=== PATIENT | male | born 1950 | race Caucasian/White ===

== ENCOUNTER → 2020-02-22 | Outpatient (CLI) | payer MEDICARE, OTHER ==
--- NOTE | 2020-02-22 18:56 | MR ---
EXAMINATION TYPE: MR lumbar spine wo/w con DATE OF EXAM: 02/22/2020 COMPARISON: NONE HISTORY: Low back pain, Rt leg/foot numbness, and urinary frequency all per order. Low back pain radi ating into right lower extremity with numbness been present for years increasing in severity over the last 1 month per patient. TECHNIQUE: Multiplanar, multisequence images of the lumbar spine is performed without and with IV contrast, util izing 7.5 mL intravenous Gadavist FINDINGS: Survey images shows dextro convex scoliosis centered at L2-L3 level. Sagittal images of the lumbar spine show vertebral body heights to appear satisfactory. Subtle grade 1 retrolisthesis L2 on L3. Multilevel disc desiccation. Moderate to advanced disc space narrowing and anterior spurring L2- L3 level. Mild to moderate disc space narrowing with vacuum disc phenomenon L3-L4 and L4-L5 levels. The conus medullaris is normal in position and signal ending mid L1 level. The bone marrow signal in tensity is within normal limits. No suspicious postcontrast enhancement is seen. Axial images at T12-L1 level shows mild broad-based disc bulge minimally effacing the anterior thecal sac with mild facet arthropathy bilaterally. Axial images at the L1-L2 level show mild/moderate facet degenerative changes and ligament flavum hyp ertrophy effacing right posterior lateral thecal sac and mild broad disc bulge. Bilateral neural fora marybeth are patent. Axial images at the L2-L3 level shows moderate posterior spur disc complex. There is mild/moderate fa cet degenerative change and ligament flavum hypertrophy. There is effacement of the anterior thecal s ac. Bilateral neural foramina are patent. Axial images at the L3-L4 level show mild/moderate facet degenerative changes and ligament flavum hyp ertrophy effacing bilateral posterior lateral thecal sac on axial image 12. There is moderate broad-b ased posterior disc protrusion effacing the anterior thecal sac. There is tfsbrrgq-eq-nzoeiu right an d nvsy-zv-jvhanbhr left-sided neural foraminal narrowing. Encroachment on exiting right L3 nerve felt present sagittal image 14 and axial image 12. Axial images at the L4-L5 level show qhcu-yt-xadqhusy broad disc bulge with broad-based right paracen tral/foraminal disc protrusion and additional right lateral disc protrusion. There is effacement of t he anterolateral thecal sac. There is moderate to severe facet degenerative change and ligament flavu m hypertrophy effacing posterior lateral thecal sac. There is iiwxzqod-tt-rzdqfz right-sided neural f oraminal narrowing encroaching on exiting right L4 nerve sagittal image 12 and axial image 6. Left-si ded neural foramen is patent. Axial images at the L5-S1 level show advanced facet degenerative changes bilaterally. Spinal canal pr eserved. Bilateral neural foramina are patent. Asymmetric mild to moderate atrophy of the right lateral paraspinal muscles noted seen best inferiorl y. IMPRESSION: Scoliotic curvature with multilevel degenerative changes as detailed above. Attention to L3-L4 and L4-L5 levels with encroachment on the exiting right L3 and L4 nerves felt present. Asymmetr ic lateral lower right paraspinal mild to moderate muscular atrophy is noted. Further details as disc ussed above.
== END | disposition home or self-care (01) ==
LOC: RADMRIMAIN 17:34
PROVIDERS: ATTEND Urology
DX: M48.061 Spinal stenosis, lumbar region without neurogenic claudication (principal); M99.73 Connective tissue and disc stenosis of intervertebral foramina of lumbar region; M51.26 Other intervertebral disc displacement, lumbar region; M51.25 Other intervertebral disc displacement, thoracolumbar region; M43.16 Spondylolisthesis, lumbar region; M47.815 Spondylosis without myelopathy or radiculopathy, thoracolumbar region; M47.816 Spondylosis without myelopathy or radiculopathy, lumbar region; M47.817 Spondylosis without myelopathy or radiculopathy, lumbosacral region; M41.86 Other forms of scoliosis, lumbar region; G12.9 Spinal muscular atrophy, unspecified; R35.0 Frequency of micturition
CPT/HCPCS: 72158; A9585

== ENCOUNTER → 2020-03-20 | Day surgery (SDC) | payer MEDICARE, OTHER ==
[2020-03-16 12:00] VITALS: BMI 29.8
[~2020-03-20] MED LIST: IOPAMIDOL M200 10 ML VIAL ONE; IV FLUID CONTINUATION 1,000 ML IV ONE; LACTATED RINGERS 1,000 ML IV SCH; MIDAZOLAM 2 MG/2 ML VIAL ONE; ROPIVACAINE 5MG/ML 20ML VIAL ONE; fentaNYL (PF) 50 MCG/ML 2 ML AMP ONE; methylPREDNISolone ACETATE 40 MG/ML 1 ML VIAL ONE
[2020-03-20 07:04] VITALS: RESP 16; TEMP 97.7
--- NOTE | 2020-03-20 08:09 | P.PCN ---
Date of Procedure: 03/20/20 Procedure(s) Performed: PREOPERATIVE DIAGNOSIS: 1- Lumbar Degenerative Disc Diseases 2-Lumbar spondylosis with Facet arthropathy without myelopathy. 3-left hip arthralgia. POSTOPERATIVE DIAGNOSIS: 1-Lumber Degenerative Disc Diseases 2-Lumbar spondylosis with Facet arthropathy without myelopathy. 3-left hip arthralgia. PROCEDURE 1. Lumbar epidural steroid injection under fluoroscopic guidance at the L5-S1 level. (Fluoroscopy imaging was available in radiology department) 2. Lumbar epidurogram. 3. Left hip joint intra-articular steroid injection . ANESTHESIA: Local with 1% lidocaine 3 ml and , moderate sedation with intravenous Versed 2 mg ,and fentanyle 50 Mcg EBL: Minimal PROCEDURE INDICATION: The patient with low back pain and radiculitis symptoms unresponsive to conservative treatment. Fluoroscopy was used to optimize visualization of the needle placement and to maximize safety. PROCEDURE DESCRIPTION / TECHNIQUE: The patient was seen and identified in the preoperative area. Risks, benefits, complications including but not limited to infections ,bleeding ,allergic reaction to the medications ,nerve damage and not complete pain releife , and alternatives were discussed with the patient. The patient agreed to proceed with the procedure and signed the consent. IV was started, and vital signs were stable. Patient was taken to the OR and time out was completed. The patient was placed in the prone position on procedure table and a pillow was placed under the abdomen to reduce lumbar lordosis. The lumbosacral area was prepped and draped in the usual sterile fashion.ere closely monitored during the procedure. Conscious sedation was used during the procedure to decrease patients anxiety. Vital signs was monitered during the entire procedure. Using anterior-posterior fluoroscopy, the L5-S1 interlaminar space was identified and the skin over this site was marked and then infiltrated with 1% lidocaine subcutaneously. Subsequently, a 20-gauge Tuohy epidural needle was inserted and advanced toward the epidural space using the ``Loss of resistance technique and guided by AP and lateral fluoroscopy. The correct needle position in the epidural space was verified with the injection of 2 mL of the water soluble contrast dye Isovue 200 contrast and observing an excellent epidurogram with the epidural spread of the dye, after negative aspiration for blood and CSF and in the absence of paresthesias. Again after negative aspiration, a 6 ml mixture containing 40 mg of Depo-medrol , and 2 ml of preservative free Normal Saline, and 2 ml of preservative free lidocaine 1% solution was injected and a washout of epidurogram was seen. Needle was withdrawn intact, skin was cleansed, and bandages were applied. Then patient turned and he was placed on supine position, the left hip area prepped with Betadine 3, then under sterile technique local infiltration of the skin and subcutaneous tissue lidocaine 1% 3 mL then 22-gauge Quincke-type spinal needle advanced slowly under fluoroscopy and placed in the left hip joint, needle placement confirmed with injection of Isovue 200 , 3 mL injected showed positive spread in the intra-articular of the left hip, then after negative aspiration, bupivacaine 0.5% 5 ML and 40 mg of Depo-Medrol mixed together and injected after negative aspiration, patient tolerated the procedure well without any complication COMPLICATIONS: None DISPOSITION / PLANS: The patient was placed in a supine position and transferred to the recovery area in a stable condition for observation. There was no evidence of lower extremity motor or sensory deficit after the procedure. Patient was discharged from the recovery room after meeting discharge criteria. Home discharge instructions were given to the patient by the staff. The patient was reexamined prior to discharge. The patient will schedule a follow up in the clinic in 2-4 weeks.
[2020-03-20 08:22] VITALS: BP 130/80; PULSE 72
--- NOTE | 2020-03-20 08:24 | FL ---
Fluoroscopy INDICATION: Pain FINDINGS: Fluoroscopy time: 0.1 minutes Images obtained: 2. IMPRESSIONS: 1. Documentation of fluoroscopy.
== END ==
LOC: ORPAIN 06:42
PROVIDERS: ATTEND Specialist
DX: M47.26 Other spondylosis with radiculopathy, lumbar region (principal); M25.552 Pain in left hip; M51.16 Intervertebral disc disorders with radiculopathy, lumbar region
CPT/HCPCS: 62323; 20610; J2250; J1030; J3010; Q9966; J2795; 99152

== ENCOUNTER 2020-05-08 13:39 | Day surgery (SDC) | payer MEDICARE, OTHER ==
[2020-05-04 11:06] VITALS: BMI 29.8
[~2020-05-08 13:39] MED LIST changes: -IOPAMIDOL M200 10 ML VIAL ONE; -IV FLUID CONTINUATION 1,000 ML IV ONE; -MIDAZOLAM 2 MG/2 ML VIAL ONE; -ROPIVACAINE 5MG/ML 20ML VIAL ONE; -fentaNYL (PF) 50 MCG/ML 2 ML AMP ONE; -methylPREDNISolone ACETATE 40 MG/ML 1 ML VIAL ONE
[2020-05-08 13:58] VITALS: RESP 16; TEMP 97.5
[2020-05-08] MEDS ORDERED: IOPAMIDOL M200 10 ML VIAL ONE (14:02)
[2020-05-08] MEDS ORDERED: methylPREDNISolone ACETATE 40 MG/ML 1 ML VIAL ONE (14:02)
--- NOTE | 2020-05-08 14:20 | P.PCN ---
Date of Procedure: 05/08/20 Procedure(s) Performed: PREOPERATIVE DIAGNOSIS:1- Lumbar radiculopathy . 2-lumbar degenerative disc disease. 3-lumbar spondylosis with lumbar facet arthropathy without myelopathy POSTOPERATIVE DIAGNOSIS: Same as preoperative diagnoses. PROCEDURE 1. Transforaminal epidural steroid injection under fluoroscopic guidance at left L3-4 ,and L4-5 level. (Fluoroscopy images stored on file in the radiology Department ) 2. Lumbar epidurogram . ANESTHESIA: Local with 1% lidocaine 4 ml only ( NO IV SEDATIONS ) EBL: Minimal PROCEDURE INDICATION: The patient with low back pain and radiculopathy symptoms unresponsive to conservative treatment. PROCEDURE DESCRIPTION / TECHNIQUE: The patient was seen and identified in the preoperative area. Risks, benefits, complications, and alternatives were discussed with the patient. The patient agreed to proceed with the procedure and signed the consent. IV was started, and vital signs were stable. Patient was taken to the OR and time out was completed. The patient was placed in the prone position on procedure table and a pillow was placed under the abdomen to reduce lumbar lordosis. The lumbosacral area was prepped and draped in the usual sterile fashion. Critical pause was taken. Vital signs were closely monitored during the procedure. Conscious sedation was used during the procedure to decrease patient s anxiety. Using oblique fluoroscopy, the chin of the ``Miky dog at left L4-5 level was identified, and the skin and deeper tissues just below was localized with 1% lidocaine. Subsequently, a 22-gauge 3.5-inch spinal needle was advanced under a tunneled view fluoroscopic guidance just underneath the chin of the `Laureny dog at the left L4-5 Under lateral fluoroscopy, the needle was then advanced to the posterior border of the interforaminal space. After negative aspiration of CSF and blood and with no paresthesias, 1 mL Isovue 200 contrast dye was injected excellent epidurogram and outlining of the nerve root Subsequently, 3 mL of block solution containing 30 mg Depo-Medrol and 2 mL of 0.9% normal saline PF was injected. Needle was removed and the same procedure was repeated at the left L3-4 level . At the end of the procedure, skin was cleansed, and bandages were applied. COMPLICATIONS:none DISPOSITION / PLANS: The patient was placed in a supine position and transferred to the recovery area in a stable condition for observation. There was no evidence of lower extremity motor or sensory deficit after the procedure. Patient was discharged from the recovery room after meeting discharge criteria. Home discharge instructions were given to the patient by the staff. The patient was reexamined prior to discharge.
[2020-05-08 14:35] VITALS: BP 160/90; PULSE 57
--- NOTE | 2020-05-08 14:46 | FL ---
Fluoroscopy History: Left Transforaminal Inj 5sec fluoro time, 2 images scanned
== END 2020-05-08 14:41 | disposition home or self-care (01) ==
LOC: ORPAIN 13:39
PROVIDERS: ATTEND Specialist
DX: M47.26 Other spondylosis with radiculopathy, lumbar region (principal); M51.16 Intervertebral disc disorders with radiculopathy, lumbar region
CPT/HCPCS: 64483; 64484; J1030; Q9966

== ENCOUNTER → 2020-06-20 | Outpatient (CLI) | payer MEDICARE, OTHER ==
[2020-06-20 11:18] LABS: Basophils % (A) 1 %; Eosinophils # (A) 0.2 k/uL (0-0.7); Eosinophils % (A) 5 %; HCT 42.5 % (39.0-53.0); HGB 13.5 gm/dL (13.0-17.5); Lymphocytes # (A) 0.9 k/uL (1.0-4.8); Lymphocytes % (A) 19 %; MCH 30.1 pg (25.0-35.0); MCHC 31.9 g/dL (31.0-37.0); MCV 94.5 fL (80.0-100.0); Mean Platelet Volume 7.2; Monocytes # (A) 0.4 k/uL (0-1.0); Monocytes % (A) 9 %; Neutrophils # (A) 3.3 k/uL (1.3-7.7); Neutrophils % (A) 65 %; Platelet Count 221 k/uL (150-450); RDW 13.5 % (11.5-15.5)
[2020-06-20 11:26] LABS: African American GFR (CKD) >90 (>60 ml/min/1.73 sqM); Anion Gap 4 mmol/L; Blood Urea Nitrogen 19 mg/dL (9-20); Calcium 9.4 mg/dL (8.4-10.2); Carbon Dioxide 28 mmol/L (22-30); Chloride 108 mmol/L (98-107); Glucose 118 mg/dL (74-99); Non-African American GFR(CKD) >90 (>60 ml/min/1.73 sqM); Potassium 4.7 mmol/L (3.5-5.1); Sodium 140 mmol/L (137-145)
== END | disposition home or self-care (01) ==
LOC: LABWHC1 10:14
PROVIDERS: ATTEND Urology
DX: Z01.818 Encounter for other preprocedural examination (principal); C61 Malignant neoplasm of prostate; R53.83 Other fatigue
CPT/HCPCS: 36415; 80048; 85025; 86850; 86900; 86901; 93005

== ENCOUNTER 2020-06-27 10:36 | Day surgery (SDC) | payer MEDICARE, OTHER ==
[2020-06-21 09:12] VITALS: BMI 29.8
--- NOTE | 2020-06-25 06:28 | P.GSHP ---
History of Present Illness H&P Date: 06/25/20 Chief Complaint: Prostate cancer The patient is a 69-year-old white male with a history of mild lower urinary tract symptoms. His PSA level was 4.69 in January 2018. He has no family history of prostate cancer. He was recently found to have a right-sided prostate nodule. Prostate ultrasound revealed a prostate volume of 21 mL. 7 of 12 biopsies revealed Jamia 7 (3+4) adenocarcinoma. The Prolaris score was 3.3. Alternative treatment options were reviewed, and he has elected to undergo a robotic-assisted laparoscopic prostatectomy with bilateral pelvic lymphadenectomy. - Cardiovascular Cardiovascular: Reports high blood pressure - Genitourinary (Male) Genitourinary: Reports nocturia Past Medical History Past Medical History: Cancer, Hypertension Additional Past Medical History / Comment(s): Subdural hematoma 2001 History of Any Multi-Drug Resistant Organisms: MRSA Date of last positivie culture/infection: 2009 MDRO Source:: buttocks Past Surgical History: Orthopedic Surgery, Tonsillectomy Additional Past Surgical History / Comment(s): brain surgery, ganglion cyst removed from knee Past Anesthesia/Blood Transfusion Reactions: No Reported Reaction Smoking Status: Former smoker - Past Family History Mother Family Medical History: Cancer Medications and Allergies Home Medications Medication Instructions Recorded Confirmed Type amLODIPine [Norvasc] 5 mg PO DAILY 08/17/15 06/21/20 History Cannabidiol (Cbd) [Epidiolex] 0 mg TOPICAL DIRECTED 03/16/20 06/21/20 History Aspirin 325 mg PO DAILY 06/21/20 06/21/20 History Naproxen Sodium [Aleve] 220 mg PO DIRECTED 06/21/20 06/21/20 History Allergies Allergy/AdvReac Type Severity Reaction Status Date / Time No Known Allergies Allergy Verified 06/21/20 09:07 Surgical - Exam - General well developed, well nourished, no distress - Respiratory normal respiratory effort, clear to auscultation - Cardiovascular Rhythm: regular Abnormal Heart Sounds: no systolic murmur, no diastolic murmur, no rub, no S3 Gallop, no S4 Gallop, no click, no other - Abdomen Abdomen: soft, non tender, no guarding, no rigid, no rebound Hernia: no none, no inguinal, no epigastric, no incisional, no reducible, no femoral, no umbilical, no scrotal, no incarcerated - Genitourinary normal penis with no external lesions, testicles non-tender - Rectum Rectum: normal sphincter tone, no masses, other (Right-sided prostate nodule) - Psychiatric oriented to time, oriented to person, oriented to place, speech is normal, memory intact Assessment and Plan (1) Malignant neoplasm of prostate Status: Acute Code(s): C61 - MALIGNANT NEOPLASM OF PROSTATE SNOMED Code(s): 985241875 Plan: Robotic-assisted laparoscopic prostatectomy (RALP) with bilateral pelvic lymphadenectomy. The procedure has been reviewed in detail with the patient and his . The anticipated perioperative course was reviewed. Also discussed were potential risks, which include anesthesia, bleeding, infection, bowel injury, neurovascular injury, urinary leak, lymphocele, and vesical neck contracture. The possible need to convert to an open procedure has been discussed. The patient is not concerned regarding preservation of potency. He is aware of the risk of urinary incontinence which may fail to resolve. He is also aware of the possible need for adjuvant therapy.
[~2020-06-27 10:36] MED LIST changes: +DEXAMETHASONE SOD PHOSPHATE 4 MG/ML 1 ML VIAL IV ONE; +HYDROmorphone 0.5 MG/0.5 ML SYRINGE IVP PRN; -LACTATED RINGERS 1,000 ML IV SCH; +ONDANSETRON 4 MG/2 ML VIAL IVP ONE
[2020-06-27] MEDS: LACTATED RINGERS 1,000 ML IV SCH (11:09)
[2020-06-27] MEDS ORDERED: LIDOCAINE 1% (10MG/ML) FOR IV START INTRADERMA ONE (11:09)
[2020-06-27] MEDS ORDERED: LACTATED RINGERS 1,000 ML IV ONE ×2 (11:22→15:59)
[2020-06-27] MEDS ORDERED: SUCCINYLCHOLINE CHLORIDE 100 MG/5 ML SYR IV ONE (12:08)
[2020-06-27] MEDS ORDERED: MIDAZOLAM 2 MG/2 ML VIAL ONE (12:08)
[2020-06-27] MEDS ORDERED: HYDROmorphone (PF) 1 MG/ML ONE (12:08)
[2020-06-27] MEDS ORDERED: GLYCOPYRROLATE 0.2 MG/ML 2 ML VIAL ONE (12:08)
[2020-06-27] MEDS ORDERED: ROCURONIUM 10 MG/ML (10 ML VIAL) IV ONE (12:08)
[2020-06-27] MEDS ORDERED: LIDOCAINE 1% INJ 10MG/ML (20 ML MDV) ONE (12:08)
[2020-06-27] MEDS ORDERED: PROPOFOL 10 MG/ML 20 ML VIAL IV ONE (12:08)
[2020-06-27] MEDS ORDERED: NEOSTIGMINE 1 MG/ML 10 ML VIAL ONE (12:08)
[2020-06-27] MEDS ORDERED: ePHEDrine SULFATE/0.9% NACL/PF 50 MG/5 ML SYRINGE IV ONE (12:08)
[2020-06-27] MEDS ORDERED: fentaNYL (PF) 50 MCG/ML 2 ML AMP ONE (12:08)
[2020-06-27] MEDS ORDERED: BUPIVACAINE (PF) 0.25% 30 ML VIAL SQ ONE (12:13)
--- NOTE | 2020-06-27 16:40 | P.OP ---
Date of Procedure: 06/27/20 Preoperative Diagnosis: Adenocarcinoma of the prostate Postoperative Diagnosis: Same Procedure(s) Performed: Robotic-assisted laparoscopic prostatectomy (RALP) with bilateral pelvic lymphadenectomy Anesthesia: MACO Surgeon: Ed Madsen Estimated Blood Loss (ml): 100 IV fluids (ml): 1,500 Pathology: other (Prostate, seminal vesicles, bilateral pelvic lymph nodes) Condition: stable Disposition: PACU Indications for Procedure: The patient is a 69-year-old white male with a history of mild lower urinary tract symptoms. His PSA level was 4.69 in January 2018. He has no family history of prostate cancer. He was recently found to have a right-sided pr ostate nodule. Prostate ultrasound revealed a prostate volume of 21 mL. 7 of 12 biopsies revealed Jamia 7 (3+4) adenocarcinoma. The Prolaris score was 3.3. Alternative treatment options were reviewed, and he has elected to undergo a robotic-assisted laparoscopic prostatectomy with bilateral pelvic lymphadenectomy. Operative Findings: No evidence of extraprostatic disease. Description of Procedure: The patient was taken in the operating room and placed in the dorsal lithotomy position, with his legs supported in Bebeto stirrups. He was carefully positioned on a beanbag for stability. The abdomen and external genitalia were prepped and draped sterilely. A Morales catheter was inserted. The Veress needle was passed through the anterior abdominal wall immediately cephalad to the umbilicus, and insufflation was performed to a pressure of 20 mm Hg. Once insufflation was performed, the Veress needle was removed and a supraumbilical incision was made, through which a 12 mm camera port was placed. Under camera guidance, 3 8 mm robotic ports were placed, 2 on the left and one on the right. An additional 12 mm port was placed on the right lateral side for use as an assistant professor of dietetics port. A 5 mm port was placed to the right of the camera port for suction. The patient was placed in Trendelenburg position, and docking was then performed to the da Ayah system utilizing a 4-arm approach. The abdomen was examined. The sigmoid colon was mobilized out of the pelvis. The small bowel was stuck down in the right lower quadrant, and these adhesions were carefully lysed to allow the small bowel to be mobilized out of the pelvis. The peritoneum was incised lateral to the medial umbilical ligaments bilaterally, exposing the pubis. The peritoneum was then incised across the midline, allowing the bladder flap to be taken down. The endopelvic fascia was opened bilaterally, and muscular attachments from the urogenital diaphragm were swept away from the prostate. Bilateral pelvic lymphadenectomies were performed in the standard fashion. The peritoneal incisions were extended in a cephalad direction, and the vas deferens were divided bilaterally. Margins of dissection were the bifurcation of the iliac vessels proximally, the circumflex iliac vein distally, the external iliac artery laterally, and the obturator nerve medially. A combination of sharp and blunt dissection was used. Care was taken to avoid any neurovascular injury, and the use of monopolar electrocautery was avoided immediately adjacent to neurovascular structures. The lymphatic package was clipped distally. No enlarged lymph nodes were encountered. There were no complications. The vesical neck was incised transversely, down to the lumen. The Morales catheter was brought out through the anterior vesical neck incision and was used for traction. The posterior aspect of the vesical neck was incised, such that the full-thickness of the vesical neck was divided. The anterior layer of the Denonvilliers fascia was incised, exposing the vas deferens. Each were isolated and divided. Next, each of the seminal vesicles were dissected away from adjacent tissues, and vascular attachments were cauterized and divided. The posterior leaf of Denonvilliers fascia was incised transversely, allowing entry into the plane between the prostate and rectum. With lateral spreading, this plane was developed down to the apex. This exposed the lateral vascular pedicles bilaterally. These were clipped and divided in an antegrade fashion, down to the apex. The neurovascular bundles were not preserved. The plane of dissection was somewhat further from the prostate on the right side than the left, given the presence of a nodule on the right side. The remaining apical attachments were swept away from the prostate. The dorsal venous complex was incised, as well as periurethral tissue. At this point, only the urethra remained intact. This was transected immediately distal to the prostatic apex using cold scissors. The specimen was placed within a specimen bag. The dorsal venous complex was sutured using a V-Loc suture in a running fashion. A second V-Loc suture was then used to place the Orlando stitch, incorporating the rhabdosphincter and the edge of Denonvilliers fascia. This allowed the bladder to be taken down to the urethra, leaving the vesical neck immediately adjacent to the urethra. The vesicourethral anastomosis was then performed using a V-Loc suture in a running fashion. After completing the anastomosis, an 18-Sudanese Morales catheter was placed and approximately 150 mL of 0.9 normal saline were instilled into the bladder. No extravasation of irrigant from the vesicourethral anastomosis was noted. Tisseel was sprayed into the pelvis over the vascular pedicles, dorsal vein, and vesicourethral anastomosis. The patient was returned to the supine position. Undocking was performed, and the specimen bag sutures were passed through the camera port. After removing all the ports and allowing all of the CO2 to be released from the peritoneal cavity, the camera port incision was enlarged to allow removal of the surgical specimen. The fascia of this incision was then closed using 0-PDS suture in a running fashion. Each of the skin incisions were then closed using 4-0 Monocryl suture in a subcuticular fashion. Marcaine was injected at each of the incision sites. Dermabond was applied to each incision. The Morales catheter was connected to gravity drainage. All sponge and needle counts were correct. The patient tolerated the procedure well was taken to the recovery room in stable condition.
[2020-06-27] MEDS ORDERED: HYDROmorphone 1 MG/ML 1 ML SYRINGE IVP PRN (16:41)
[2020-06-27] MEDS ORDERED: ACETAMINOPHEN TAB 325 MG TAB PO PRN (16:41)
[2020-06-27] MEDS ORDERED: ONDANSETRON 4 MG/2 ML VIAL IVP PRN (16:41)
[2020-06-27] MEDS ORDERED: MAG HYDROX/AL HYDROX/SIMETH 30 ML CUP PO PRN (16:41)
[2020-06-27] MEDS: KETOROLAC 15 MG/ML 1 ML VIAL IVP PRN (16:57)
[2020-06-27] MEDS: DEXTROSE 5%-0.45% NACL 1,000 ML IV SCH (17:53)
[2020-06-27] MEDS: HEPARIN SODIUM,PORCINE 5,000 UNIT/ML 1 ML VIAL SQ SCH (20:20)
[2020-06-28] MEDS: DEXTROSE 5%-0.45% NACL 1,000 ML IV SCH (01:18)
[2020-06-28 02:27] VITALS: TEMP 98.5
[2020-06-28] MEDS: LACTATED RINGERS 1,000 ML IV SCH (05:34)
[2020-06-28 07:45] VITALS: BP 155/81; PULSE 64; RESP 18
[2020-06-28] MEDS: HEPARIN SODIUM,PORCINE 5,000 UNIT/ML 1 ML VIAL SQ SCH (08:16)
[2020-06-28] MEDS: KETOROLAC 15 MG/ML 1 ML VIAL IVP PRN (08:19)
[2020-06-28] MEDS ORDERED: amLODIPine 5 MG TAB PO SCH (09:00)
--- NOTE | 2020-06-28 11:19 | P.DS ---
Providers Expected date of discharge: 06/28/20 Attending physician: Ed Madsen Primary care physician: Eric Eduardo - Discharge Diagnosis(es) (1) Malignant neoplasm of prostate Current Visit: No Status: Acute Hospital Course: On the day of admission, the patient underwent an uncomplicated robotic-assisted laparoscopic prostatectomy with bilateral pelvic lymphadenectomy. The periope rative course was unremarkable. He remained afebrile with stable vital signs. On the first postoperative day, he was reasonably comfortable removal with only minimal incisional discomfort. He tolerated clear liquid diet, and ambulated without difficulty. The incisions were clean and dry. The Morales catheter was draining clear yellow urine. Procedures: Robotic-assisted laparoscopic prostatectomy (RALP) with bilateral pelvic lymphadenectomy on 06/27/2020 Patient Condition at Discharge: Good Plan - Discharge Summary Discharge Rx Participant: Yes New Discharge Prescriptions: New Ciprofloxacin HCl [Cipro] 250 mg PO Q12HR 3 Days #6 tab Ketorolac [Toradol] 10 mg PO Q6HR PRN #12 tab PRN Reason: Moderate To Severe Pain No Action amLODIPine [Norvasc] 5 mg PO DAILY Cannabidiol (Cbd) [Epidiolex] 0 mg TOPICAL DIRECTED Aspirin 325 mg PO DAILY Naproxen Sodium [Aleve] 220 mg PO DIRECTED Discharge Medication List amLODIPine [Norvasc] 5 mg PO DAILY 08/17/15 [History] Cannabidiol (Cbd) [Epidiolex] 0 mg TOPICAL DIRECTED 03/16/20 [History] Aspirin 325 mg PO DAILY 06/21/20 [History] Naproxen Sodium [Aleve] 220 mg PO DIRECTED 06/21/20 [History] Ciprofloxacin HCl [Cipro] 250 mg PO Q12HR 3 Days #6 tab 06/28/20 [Rx] Ketorolac [Toradol] 10 mg PO Q6HR PRN #12 tab 06/28/20 [Rx] Follow up Appointment(s)/Referral(s): Ed Madsen MD [STAFF PHYSICIAN] - 07/06/20 Activity/Diet/Wound Care/Special Instructions: Discharge home with Morales catheter. Instruct patient to use overnight drainage bag as well as urinary leg bag. Okay to shower. Diet as tolerated. No lifting, driving, or strenuous activity. Reassure patient that abdominal wall ecchymosis and penoscrotal swelling are normal. Instruct patient to begin taking antibiotics one day prior to Morales catheter removal. Hold aspirin and Naproxen for 72 hours. Discharge Disposition: HOME SELF-CARE
== END 2020-06-28 13:31 | disposition home or self-care (01) ==
LOC: OR 10:36 → 4SSUR 16:28 → OR 06-28 13:31
PROVIDERS: ATTEND Urology
DX: C61 Malignant neoplasm of prostate (principal); I10 Essential (primary) hypertension; Z86.14 Personal history of Methicillin resistant Staphylococcus aureus infection; Z87.891 Personal history of nicotine dependence; Z98.890 Other specified postprocedural states; Z79.1 Long term (current) use of non-steroidal anti-inflammatories (NSAID); Z79.82 Long term (current) use of aspirin; Z79.899 Other long term (current) drug therapy
CPT/HCPCS: 88307; 88309; 55866; 38571; C1762; J2250; J1644 ×2; J1100; J2710; J0690; J2405; J2001; J3010; J1170 ×2; J1885 ×2; J0330; J2704; 86850; 86900; 86901

== ENCOUNTER → 2021-05-28 | Outpatient (CLI) | payer MEDICARE, OTHER ==
--- NOTE | 2021-05-28 09:41 | US ---
EXAMINATION TYPE: US duplex aorta DATE OF EXAM: 05/28/2021 COMPARISON: NONE CLINICAL HISTORY: 70-year-old male Z87.891 hx of tobacco use. TECHNIQUE: Multiple sonographic images of the abdominal aorta are obtained. FINDINGS: EXAM MEASUREMENTS: Abdominal Aorta: Proximal: 2.6 x 2.5 cm Mid: 1.8 x 2.0 cm Distal: 1.9 x 2.1 cm Bifurcation: Right common iliac artery: 1.1 x 1.1 cm. Left common iliac artery: 1.4 x 1.1 cm IMPRESSION: Ectatic proximal abdominal aorta measuring up to 2.6 cm. No evidence for AAA.
== END | disposition home or self-care (01) ==
LOC: RADUSWWP 06:57
PROVIDERS: ATTEND Internal Medicine
DX: I77.811 Abdominal aortic ectasia (principal); Z87.891 Personal history of nicotine dependence
CPT/HCPCS: 93979

== ENCOUNTER → 2023-05-13 | Outpatient (CLI) | payer MEDICARE, OTHER ==
--- NOTE | 2023-05-13 12:43 | XR ---
Two-view Skull. DATE: 05/13/2023. COMPARISON: None available. MEDICAL HISTORY: Evaluate for metallic foreign bodies in either. IMPRESSION: There are no metallic radiopaque foreign objects within the orbits or within the region of the ear. No fractures are seen.
== END | disposition home or self-care (01) ==
LOC: RADXRMAIN 12:01
PROVIDERS: ATTEND Orthopaedic Surgery Sports Medicine
DX: S46.092A Other injury of muscle(s) and tendon(s) of the rotator cuff of left shoulder, initial encounter (principal); M25.512 Pain in left shoulder
CPT/HCPCS: 70260

== ENCOUNTER → 2023-12-21 | Outpatient (CLI) | payer MEDICARE ==
--- NOTE | 2023-12-21 14:28 | XR ---
EXAMINATION TYPE: XR chest 2V DATE OF EXAM: 12/21/2023 COMPARISON: None INDICATION: Cough TECHNIQUE: Frontal and lateral views of the chest are obtained. FINDINGS: The heart size is normal. The pulmonary vasculature is normal. The lungs are clear. IMPRESSION: 1. No acute pulmonary process.
== END | disposition home or self-care (01) ==
LOC: RADXRMAIN 07:38
PROVIDERS: ATTEND Internal Medicine
DX: R05.9 Cough, unspecified (principal)
CPT/HCPCS: 71046

== ENCOUNTER 2024-01-29 08:30 | Day surgery (SDC) | payer MEDICARE ==
[2024-01-29] MEDS ORDERED: LIDOCAINE 1% INJ 10MG/ML (20 ML MDV) ONE (09:24)
[2024-01-29] MEDS ORDERED: PROPOFOL 10 MG/ML 20 ML VIAL IV ONE (09:24)
--- NOTE | 2024-02-05 15:55 | OP ---
OPERATIVE REPORT DATE OF SERVICE : 01/29/2024 REQUESTING PHYSICIAN: Dr. Brar. BRIEF HISTORY: The patient is a 73-year-old pleasant white male, scheduled for an upper endoscopy as well as colonoscopy as a part of evaluation of GERD and intermittent rectal bleeding. PROCEDURES PERFORMED: 1. EGD. 2. Colonoscopy with snare polypectomy. PREOPERATIVE DIAGNOSES: Longstanding history of gastroesophageal reflux disease and intermittent rectal bleeding. ANESTHESIA: IV sedation per Anesthesia. DESCRIPTION OF PROCEDURE: After informed consent was obtained from the patient, he was brought into the endoscopy unit. IV conscious sedation was administered by Anesthesia on continuous monitoring. Initially, the Olympus CF-180 video endoscope was inserted into the mouth. Esophagus intubated without any difficulty and was gradually advanced into the stomach and duodenum and carefully examined. Bulb and the second part of the duodenum appeared normal. The scope at this time was withdrawn to the stomach, adequately insufflated with air, and upon careful examination, mucosa of the antrum, body, cardia, and fundus appeared normal. Scope was then withdrawn to the esophagus. The GE junction was located at 39 cm from the incisors. Small hiatal hernia noted. The length of the esophagus appeared normal and the patient tolerated the procedure well. He continued to remain sedated. At this time, a colonoscopy was done. Digital rectal examination was normal. The Olympus CF-190 video colonoscope was inserted into the rectum, gradually advanced the scope into the cecum. Careful examination was performed as the scope was gradually being withdrawn. There was a 3 to 4 mm sessile polyp noted in the cecum that was removed by cold snare polypectomy. Ascending colon, transverse colon, descending colon, sigmoid colon, and rectum appeared normal. In the rectum, retroflexion was performed and grade 2 small internal hemorrhoids were seen. The patient tolerated the procedure well. IMPRESSION: 1. Upper endoscopy revealed. a. Small hiatal hernia. b. No evidence of esophagitis or Ramos's esophagus. 2. Colonoscopy revealed a 3 to 4 mm cecal polyp, status post cold snare polypectomy and small internal hemorrhoids. RECOMMENDATIONS: Findings of this examination were discussed with the patient as well as his family. He was advised to be on a high-fiber diet, take fiber supplements on a regular basis, and recommend a repeat colonoscopy at age 79. MMODL / IJN: [id number] /
== END 2024-01-29 10:41 ==
LOC: ORWHC2ENDO 08:30
PROVIDERS: ATTEND Internal Medicine Gastroenterology
DX: K21.9 Gastro-esophageal reflux disease without esophagitis (principal); K64.8 Other hemorrhoids; K63.5 Polyp of colon; K44.9 Diaphragmatic hernia without obstruction or gangrene; I10 Essential (primary) hypertension; Z79.899 Other long term (current) drug therapy
CPT/HCPCS: 43235; 45385; 88305